=== PATIENT | female | born 1955 | race Caucasian/White ===

== ENCOUNTER 2022-12-06 15:21 | Inpatient (IN) | payer OTHER ==
[~2022-12-06] VITALS: Ht 167.6 cm; Wt 62.2 kg
[2022-12-06 15:49] LABS: Hematocrit 36.4 % (33.0-51.0); Mean Corpuscular HGB 31.5 pg (26.0-34.0); Mean Corpuscular HGB Conc 35.7 g/dL (31.5-36.5); Mean Corpuscular Volume 88 fL (80-100); Mean Platelet Volume 11.5 fL (9.1-12.4); Platelet Count 343 K/mm3 (150-400); RDW Coefficient Variation 14.3 % (11.7-14.2); RDW Standard Deviation 45.9 fL (35.1-46.3); Red Blood Cell Count 4.13 M/mm3 (3.80-5.20); White Blood Cell Count 11.37 K/mm3 (4.00-11.30)
[2022-12-06 15:54] LABS: Source, Urine Foley catheter
[2022-12-06 15:58] LABS: Appearance, Urine Hazy (Clear); Bilirubin, Urine Neg (Neg); Blood, Urine 5+ (Neg); Color, Urine Yellow (P-Yellow); Glucose Qualitative, Urine Neg (Neg); Ketones, Urine 1+ (Neg); Leukocyte Esterase, Urine Neg (Neg); Nitrite, Urine Neg (Neg); Protein, Urine 3+ (Neg); Urobilinogen, Urine 1+ (Normal)
[2022-12-06 16:09] LABS: Base Excess Venous -1.5 mmol/L; Bicarbonate Venous 23.1 mmol/L (24.0-30.0); PCO2 Venous 36.9 mmHg (38-42); PO2 Venous 51.3 mmHg (38-42); pH Blood Venous 7.41 (7.34-7.37)
[2022-12-06 16:13] LABS: Creatine Kinase MB 9.5 ng/mL (0.0-3.6)
[2022-12-06 16:17] LABS: Albumin, Blood 2.4 g/dL (3.4-5.0); Albumin/Globulin Ratio 0.5 (0.8-1.8); Bilirubin, Total 0.6 mg/dL (0.1-1.0); Bun/Creatinine Ratio 33.8 (12.0-20.0); Calcium, Blood 8.6 mg/dL (8.5-10.1); Creatine Kinase MB Index 0.4 (0.0-4.0); Creatinine, Blood 0.71 mg/dL (0.40-1.00); Globulin, Blood 4.9 g/dL (2.2-4.0); Potassium, Blood 2.4 mmol/L (3.5-5.5); Total Protein, Blood 7.3 g/dL (6.4-8.2)
[2022-12-06 16:21] LABS: Mucus Light (0-Heavy); RBC Cast 0-2 /lpf (0)
[2022-12-06 16:22] LABS: Amorphous Light (0-Heavy); Bacteria Many /hpf; Squamous Epithelial Cells Rare /hpf (Few)
[2022-12-06 16:49] LABS: BAND PERCENT MAN 40 % (0-8); BASOPHILS PERCENT MAN 0 % (0-2); EOSINOPHILS PERCENT MAN 0 % (0-6); LYMPHOCYTES ABSOLUTE MAN 1.59 K/mm3 (0.84-5.20); LYMPHOCYTES PERCENT MAN 14 % (21-46); MONOCYTES ABSOLUTE MAN 0.45 K/mm3 (0.16-1.47); MONOCYTES PERCENT MAN 4 % (4-13); NEUTROPHILS ABSOLUTE MAN 9.32 K/mm3 (1.96-9.15); SEG NEUTROPHILS PERCENT MAN 42 % (41-73); TOTAL CELLS COUNTED 100
[2022-12-06 18:04] LABS: International Normalized Ratio 1.19; Prothrombin Time Results 12.4 Sec (9.7-11.5)
[2022-12-06 18:52] VITALS: BP 135/106
--- NOTE | 2022-12-06 18:55 | NUR ---
PTARRIVED WITH STOOL IN ATTENDS NOTED TO HAVE DARK RED RENETTA BLOOD IN STOOL WHICH WAS CONFIRMED TO BE FROM ABDOMEN. CT RESULTS ARE NOTED, ATTEMPTING TO CONTACT HOSPITALIST AT THIS TIME. PT CONFUSED. PT CLEANED ON ARRIVAL. ABD TAUGUHT TO PALPATION, BUT DOES NOT REPORT PAIN TO PALPATOPN, BOWEL TONES DIM TO ABSENT T/O
[2022-12-06 19:59] LABS: U Amphetamine Screen Not Detected; U Barbituate Screen Not Detected; U Benzodiazapine Screen Not Detected; U Buprenorphine Screen Not Detected; U Cannabinoids Screen Not Detected; U Cocaine Screen Not Detected; U Methadone Screen Not Detected; U Methamphetamine Screen Not Detected; U Opiates Screen Not Detected; U Oxycodone Screen Not Detected; U Phencyclidine Screen Not Detected; U Propoxyphene Screen Not Detected
[2022-12-06 20:25] VITALS: BP 147/70
[2022-12-06] MEDS ORDERED: Hair, Skin & N1 EACH PO (22:15)
[2022-12-06] MEDS ORDERED: ASPI325 PO (22:15)
[2022-12-06 22:53] LABS: Bun/Creatinine Ratio 37.7 (12.0-20.0); Calcium, Blood 7.9 mg/dL (8.5-10.1); Creatinine, Blood 0.56 mg/dL (0.40-1.00); Potassium, Blood 2.8 mmol/L (3.5-5.5)
[2022-12-07 00:50] VITALS: BP 128/63
[2022-12-07 04:37] VITALS: BP 147/65
[2022-12-07 05:23] LABS: BASOPHILS ABSOLUTE AUTO 0.04 K/mm3 (0.00-0.23); BASOPHILS PERCENT AUTO 0 % (0-2); Hematocrit 27.9 % (33.0-51.0); LYMPHOCYTES ABSOLUTE AUTO 1.82 K/mm3 (0.84-5.20); LYMPHOCYTES PERCENT AUTO 16 % (21-46); MONOCYTES ABSOLUTE AUTO 0.76 K/mm3 (0.16-1.47); MONOCYTES PERCENT AUTO 7 % (4-13); Mean Corpuscular HGB 31.3 pg (26.0-34.0); Mean Corpuscular HGB Conc 35.8 g/dL (31.5-36.5); Mean Corpuscular Volume 88 fL (80-100); Platelet Count 286 K/mm3 (150-400); RDW Coefficient Variation 14.2 % (11.7-14.2); RDW Standard Deviation 45.3 fL (35.1-46.3); Red Blood Cell Count 3.19 M/mm3 (3.80-5.20); White Blood Cell Count 11.57 K/mm3 (4.00-11.30)
[2022-12-07 05:24] LABS: EOSINOPHILS PERCENT AUTO 0 % (0-6); IMMATURE GRAN ABSOLUTE AUTO 0.06 K/mm3 (0.00-0.10); IMMATURE GRAN PERCENT AUTO 1 % (0-1); NEUTROPHILS ABSOLUTE AUTO 8.89 K/mm3 (1.96-9.15); NEUTROPHILS PERCENT AUTO 77 % (41-73)
[2022-12-07 05:49] LABS: Albumin, Blood 1.8 g/dL (3.4-5.0); Albumin/Globulin Ratio 0.5 (0.8-1.8); Bilirubin, Total 0.7 mg/dL (0.1-1.0); Bun/Creatinine Ratio 31.8 (12.0-20.0); Creatinine, Blood 0.63 mg/dL (0.40-1.00); Globulin, Blood 3.9 g/dL (2.2-4.0); Potassium, Blood 3.4 mmol/L (3.5-5.5); Total Protein, Blood 5.7 g/dL (6.4-8.2)
--- NOTE | 2022-12-07 06:17 | NUR ---
SHIFT SUMMARY: PT'S MENTATION SEEMS TO HAVE IMPROVED SLIGHTOUTLY THROUGHOUT SHIFT. AT BEGINNING OF SHIFT PT WOULD NOT GIVEN ANY VERBAL RESPONCE TO QUESTIONS OR STATEMENTS DIRECTED TOWARDS HER. PT IS NOW ABLE TO ANSWER SIMPLE QUESTIONS, AND MAKE SOME NEEDS KNOW. ABLE TO FOLLOW DIRECTIONS. NOT ABLE TO UNDERSTAND REASONING BEHIND QUESTIONS ASKED OF HER. ORIENTED TO SELF AND LOCATION ONLY. CIWAH SCORES HAVE REMAINED < 8, NOT NEEDING ANY TREATMENT. PT HAS HAD ONE SMALL, SOFT BM THAT HAS BOTH BRIGHT RED AND BLACK APPEARENCE. PALENCIA CATHETER DRAINING BROWN URINE WITHOUT DIFFICULTY. POTASSIUM REPLACEMENT GIVEN TO PT DUE TO POTASSIUM BEING 2.8, A.M. LABS SHOW IMPROVEMENT OF 3.4 WITH POTASSIUM REPLACMENT NOT YET COMPLETE. WILL CONTINUE TO MONITOR. MEDICATED FOR GENERLIZED PAIN WITH PRN PAIN MEDS. DENIES ANY NAUSEA.
[2022-12-07 07:00] VITALS: BP 128/64
--- NOTE | 2022-12-07 08:00 | NUR ---
Received report from Judith KEYES. Patient awake in bed and her alertness has increased from her admission from last night. She is on RA and sats >90%. She is alert to self, and family. Speech is clear. She has 20ga LW, 20ga, RAC, 18gas LAC, all C/D/I and flushed and SL'd. She has 14 Fr Dos Santos draining to gravity brown colored urine in adequate amounts. She continues to have blood in stool and abdome tender to palpation. WU. She is NPO and green swabs for mouth.
--- NOTE | 2022-12-07 08:00 | NUR ---
Received report from Judith KEYES. Patient is awake in bed and has increased her alertness since admission. Significant other called and gave update. She is on RA and sats >90%. She has 14 Fr rios draining to garvity brown colored urine. She has 20ga IV LW, 20ga RAC, 18ga LAC, all have been flushed and SL'd. She has tender to palpation abdomen and awaiting surgical consult. Attends in place. WU. She is NPO and ice chips.
--- NOTE | 2022-12-07 11:36 | NUR ---
Patient has been resting well. Dr Garcia by and will allow Abx to work and re-evaluate. Tolerating am IV meds well. No other significant changes currently. No stools this shift as of yet. She remains on RA and sats >90%.
[2022-12-07 13:46] VITALS: BP 124/59
--- NOTE | 2022-12-07 15:30 | NUR ---
Patient had large maroon stool approx 400 mls. VSS. She is alert and able to assist with care. She remains on RA and sats >90%. She has been tolerating ice chips well. Dos Santos remains patent, now light lilliana/yellow urine.
[2022-12-07 18:04] VITALS: BP 134/62
--- NOTE | 2022-12-07 19:16 | NUR ---
Medicated patient for stomach pain per MAR. She remains on RA and sat s>90%. She wears attends for incontinence of bloody stool. She has 14Fr Dos Santos draining to gravity light lilliana colored urine. Jose will re-evaluate tomorrow, but she might need GI Consult. She is not amblatory at all and states she crawls at home to get around, She has x3 IV's and 20ga LW infusing Abx and other two flushed and SL'd. MAEW but very weak. Stan is more oriented all the time and is able to communicate her needs.
[2022-12-08 00:06] VITALS: BP 139/76
[2022-12-08 04:18] VITALS: BP 146/66
[2022-12-08 04:24] LABS: Albumin, Blood 1.7 g/dL (3.4-5.0); Albumin/Globulin Ratio 0.5 (0.8-1.8); Bilirubin, Total 0.7 mg/dL (0.1-1.0); Bun/Creatinine Ratio 22.3 (12.0-20.0); Calcium, Blood 7.8 mg/dL (8.5-10.1); Creatinine, Blood 0.58 mg/dL (0.40-1.00); Globulin, Blood 3.7 g/dL (2.2-4.0); Potassium, Blood 2.8 mmol/L (3.5-5.5); Total Protein, Blood 5.4 g/dL (6.4-8.2)
--- NOTE | 2022-12-08 06:17 | NUR ---
SHIFT SUMMARY: PT HAS BEEN ALERT, ORIENTED X 2-3. DISORIENTED TO DATE/TIME. INTERMITTENT CRAMPING PAIN IN ABDOMEN. MEDICATED WITH PRN PAIN MEDICATION AND HEATING PAD APPLIED TO ABDOMEN WITH GOOD RESULTS. PT CONTINUES TO HAVE BLOODY/BLACK LIQUID INCONTINENT STOOLS. PALENCIA CATHETER PUTTING OUT TEA COLORED CLEAR URINE WITHOUT DIFFICULTY. PT HAS DENIED ANY NAUSEA DURING THIS SHIFT. IV FLUIDS INFUSING ORDERED. ABDOMENAL SCAN COMPLTED THIS A.M.
[2022-12-08 07:38] VITALS: BP 158/75
[2022-12-08 15:38] LABS: Phosphorus, Blood 2.2 mg/dL (2.5-4.9); Potassium, Blood 3.3 mmol/L (3.5-5.5)
[2022-12-08 15:52] VITALS: BP 124/64
--- NOTE | 2022-12-08 18:34 | NUR ---
SHIFT SUMMARY: PT NAPS OFTEN, ALERT TO STAFF IN ROOM, ORIENTED TO SELF, LOCATION, MINIMAL SITUATION AND CONFUSED RE: DATE/TIME. PT HAS BEEN COOPERATIVE W/CARE BUT HAS BEEN RESISTANT TO ACTIVITY OR WORKING WITH PT/OT. O2 SATS >93% ON RA. VS STABLE. PT NOW SURGICAL STATUS, TELEMETRY HAS BEEN DISCONTINUED. PT INCONTINENT OF LIQUID STOOL, COLOR BECOMING MORE BROWN IN COLOR. PT DIET PROGRESSED TO CLEAR LIQUID, CURRENTLY TOLERATING WELL. INDWELLING PALENCIA DC'd, PUREWICK IN PLACE FOR PART OF THE SHIFT BUT URINE WAS MIXING W/STOOL IN COLLECTION CONTAINER. PT CURRENTLY WEARING ATTENDS, CHECKED OFTEN AND CHANGED NEEDED. AT THIS TIME PT IS RESTING QUIETLY IN BED, WILL CONTINUE TO MONITOR AND TREAT ACCORDINGLY UNTIL CHANGE OF SHIFT.
[2022-12-08 20:58] VITALS: BP 152/77
--- NOTE | 2022-12-08 22:29 | NUR ---
ASSUMPTION OF CARE/ASSESSMENT: ASSUMED CARE OF PT AT 1900; PT IN BED AND A&O X 2. PT IS ABLE TO STATE NAME/ AND THAT SHE IS IN [place] ACCURATELY, BUT CANNOT STATE WHY SHE IS HERE OR THE TIME/DATE ACCURATELY. PT IS FOLLOWING COMMANDS AT THIS TIME. PT CURRENTLY ON RA WITH SPO2 96<. SR ON MONITOR WITH HR 80'S AND SBP 150'S; NO C/O CHEST PAIN OR SOB AT THIS TIME. ABD IS TENDER TO TOUCH AND HYPO ACTIVE BOWEL SOUNDS NOTED. PT WITH DEPENDS IN PLACE FOR ELIMINATION/VOIDING NEEDS. PT REPOSITIONING IN BED INDEPENDENTLY AT THIS TIME. PPP X 4, SKIN WARM AND INTACT. BED LOWERED, CALL LIGHT IN REACH, WILL CONTINUE TO MONITOR.
[2022-12-09 00:19] VITALS: BP 123/49
[2022-12-09 03:54] VITALS: BP 128/64
[2022-12-09 04:06] LABS: BASOPHILS ABSOLUTE AUTO 0.04 K/mm3 (0.00-0.23); BASOPHILS PERCENT AUTO 0 % (0-2); EOSINOPHILS ABSOLUTE AUTO 0.08 K/mm3 (0.00-0.68); EOSINOPHILS PERCENT AUTO 1 % (0-6); Hematocrit 26.2 % (33.0-51.0); Hemoglobin 9.1 g/dL (11.5-16.0); IMMATURE GRAN ABSOLUTE AUTO 0.13 K/mm3 (0.00-0.10); IMMATURE GRAN PERCENT AUTO 1 % (0-1); LYMPHOCYTES ABSOLUTE AUTO 2.17 K/mm3 (0.84-5.20); LYMPHOCYTES PERCENT AUTO 17 % (21-46); MONOCYTES ABSOLUTE AUTO 0.71 K/mm3 (0.16-1.47); MONOCYTES PERCENT AUTO 6 % (4-13); Mean Corpuscular HGB 31.2 pg (26.0-34.0); Mean Corpuscular HGB Conc 34.7 g/dL (31.5-36.5); Mean Corpuscular Volume 90 fL (80-100); NEUTROPHILS ABSOLUTE AUTO 9.58 K/mm3 (1.96-9.15); NEUTROPHILS PERCENT AUTO 75 % (41-73); Platelet Count 335 K/mm3 (150-400); RDW Coefficient Variation 15.7 % (11.7-14.2); RDW Standard Deviation 51.1 fL (35.1-46.3); Red Blood Cell Count 2.92 M/mm3 (3.80-5.20); White Blood Cell Count 12.71 K/mm3 (4.00-11.30)
[2022-12-09 04:21] LABS: Albumin, Blood 1.7 g/dL (3.4-5.0); Anion Gap 4 mmol/L (6-16); Blood Urea Nitrogen 9 mg/dL (8-24); CO2, Blood 23 mmol/L (21-32); Calcium, Blood 8.2 mg/dL (8.5-10.1); Chloride, Blood 116 mmol/L (98-108); Creatinine, Blood 0.56 mg/dL (0.40-1.00); Glomerular Filtration Rate 100 (60-); Glucose, Blood 106 mg/dL (70-99); Magnesium, Blood 1.5 mg/dL (1.6-2.4); Phosphorus, Blood 2.7 mg/dL (2.5-4.9); Potassium, Blood 2.8 mmol/L (3.5-5.5); Sodium, Blood 143 mmol/L (136-145)
--- NOTE | 2022-12-09 06:14 | NUR ---
SHIFT SUMMARY: PT SLEPT FOR THE MAJORITY OF THE NIGHT. PT HAD 9/10 ABD PAIN AND MEDICATED PER EMAR EARLY THIS MORNING. PT CONTINUES TO HAVE LOOSE STOOL. PT POTASSIUM LOW THIS MORNING AND RECIEVING REPLACEMENTS AT THIS TIME. MEPILEX PLACED ON LEFT, INNER KNEE AND LEFT HIP TO PREVENT SKIN BREAKDOWN; PT FAVORS THIS SIDE TO SLEEP ON AND THESE SITES STARTED TO BECOME RED. NS INFUSING AT 75 MLS/HR. BED LOWERED, CALL LIGHT IN REACH, WILL CONTINUE TO MONITOR UNTIL ONCOMING RN ARRIVES.
[2022-12-09 08:04] VITALS: BP 124/74
[2022-12-09 16:24] VITALS: BP 143/63
[2022-12-09 16:42] LABS: Albumin, Blood 1.7 g/dL (3.4-5.0); Anion Gap 5 mmol/L (6-16); Blood Urea Nitrogen 8 mg/dL (8-24); CO2, Blood 21 mmol/L (21-32); Chloride, Blood 119 mmol/L (98-108); Creatinine, Blood 0.54 mg/dL (0.40-1.00); Glomerular Filtration Rate 101 (60-); Glucose, Blood 149 mg/dL (70-99); Phosphorus, Blood 3.2 mg/dL (2.5-4.9); Potassium, Blood 2.9 mmol/L (3.5-5.5); Sodium, Blood 145 mmol/L (136-145)
--- NOTE | 2022-12-09 17:52 | NUR ---
SHIFT SUMMARY/TRANSFER: PT MORE ALERT TODAY, ORIENTED TO SELF, LOCATION, MINIMAL SITUATION. PT CONTINUES COOPERATIVE W/CARE. O2 SATS MAINTAINED >93% ON RA. VS STABLE, PT DENIES SOB OR CP. PT MEDICATED PER EMAR FOR C/O ABDOMINAL CRAMPING. PT CONTINUES INCONTINENT OF BOWEL AND URINE. ATTENDS IN PLACE, CHECKED FREQUENTLY AND CHANGED NEEDED. BOWEL CONTINUES BROWN IN COLOR AND UNFORMED/LIQUID. ELECTROLYTE REPLACMENT CONTINUES PER ORDERS. PT HAS RECEIVED NEW ROOM PLACEMENT IN SURGICAL DEPT. REPORT GIVEN TO WALI PERALES AND PT TRANSFERED W/OUT INCIDENT. PT'S BOYFRIEND (ZAIN) UPDATED ON ROOM CHANGE VIA TELEPHONE.
[2022-12-09 19:45] VITALS: BP 150/63
--- NOTE | 2022-12-09 23:54 | NUR ---
ASSUMED CARE OF PT. PT RESTING IN BED, APPEARS TO BE SLEEPING. RESP E/U, NO DISTRESS NOTED. BED ALARM ON.
[2022-12-10 03:40] VITALS: BP 154/86
[2022-12-10 06:40] LABS: BASOPHILS ABSOLUTE AUTO 0.04 K/mm3 (0.00-0.23); BASOPHILS PERCENT AUTO 0 % (0-2); EOSINOPHILS ABSOLUTE AUTO 0.08 K/mm3 (0.00-0.68); EOSINOPHILS PERCENT AUTO 1 % (0-6); Hematocrit 25.6 % (33.0-51.0); Hemoglobin 8.9 g/dL (11.5-16.0); IMMATURE GRAN ABSOLUTE AUTO 0.08 K/mm3 (0.00-0.10); IMMATURE GRAN PERCENT AUTO 1 % (0-1); LYMPHOCYTES ABSOLUTE AUTO 2.05 K/mm3 (0.84-5.20); LYMPHOCYTES PERCENT AUTO 18 % (21-46); MONOCYTES ABSOLUTE AUTO 0.77 K/mm3 (0.16-1.47); MONOCYTES PERCENT AUTO 7 % (4-13); Mean Corpuscular HGB 31.7 pg (26.0-34.0); Mean Corpuscular HGB Conc 34.8 g/dL (31.5-36.5); Mean Corpuscular Volume 91 fL (80-100); Mean Platelet Volume 11.1 fL (9.1-12.4); NEUTROPHILS ABSOLUTE AUTO 8.22 K/mm3 (1.96-9.15); NEUTROPHILS PERCENT AUTO 73 % (41-73); Platelet Count 328 K/mm3 (150-400); RDW Coefficient Variation 15.8 % (11.7-14.2); RDW Standard Deviation 52.3 fL (35.1-46.3); Red Blood Cell Count 2.81 M/mm3 (3.80-5.20); White Blood Cell Count 11.24 K/mm3 (4.00-11.30)
--- NOTE | 2022-12-10 06:40 | NUR ---
PT VSS T/O NIGHT. PT ANATOLY CL PO, DENIED N/V, IS PASSING FLATUS AND BROWN UNFORMED BM. PT INCONTINENT OF URINE AND STOOL. ABD REMAINS FIRM/DISTENDED, PT REP GENERALIZED ABD PAIN. PAIN MGD W/50 MCG FENTANYL W/REP RELIEF. CIWA STABLE. IVF AND ABX CONT PER ORDERS. BED ALARM ON FOR SAFETY.
[2022-12-10 06:58] LABS: Albumin, Blood 1.6 g/dL (3.4-5.0); Anion Gap 1 mmol/L (6-16); Blood Urea Nitrogen 6 mg/dL (8-24); Bun/Creatinine Ratio 12.1 (12.0-20.0); CO2, Blood 23 mmol/L (21-32); Calcium, Blood 7.9 mg/dL (8.5-10.1); Chloride, Blood 117 mmol/L (98-108); Glomerular Filtration Rate 103 (60-); Glucose, Blood 130 mg/dL (70-99); Magnesium, Blood 1.7 mg/dL (1.6-2.4); Phosphorus, Blood 2.5 mg/dL (2.5-4.9); Potassium, Blood 2.8 mmol/L (3.5-5.5); Sodium, Blood 141 mmol/L (136-145)
[2022-12-10 07:05] VITALS: BP 144/83
[2022-12-10 14:29] VITALS: BP 133/73
--- NOTE | 2022-12-10 17:11 | NUR ---
SUMMARY: PT ADMITTED FOR ACUTE ENCEPHALOPATHY, DIVERTICULITIS WITH MICRO PERF. PT IS A/O, VSS, CIWA 0 THIS SHIFT. PT CONTINUES TO HAVE ABD PAIN, ABD IS MILDLY DISTENDED AND TENDER, PT MEDICATED PER EMAR. PT TOLERATING CLEAR LIQUIDS, NO N/V. PT HAS WEAKNESS, BUT ABLE TO WORK WITH THERAPY TODAY AND SAT IN RECLINER FOR SOME TIME. PT IS HAVING INCONTINENT BROWN, LIQUID BM'S CHANGED FREQUENTLY AND SKIN CARE GIVEN. ANTIBIOTICS AND POTASSIUM INFUSED TODAY. NO ACUTE CONCERNS AT THIS TIME, PT USING CALL LIGHT.
[2022-12-10 19:45] VITALS: BP 174/91
[2022-12-11 00:08] VITALS: BP 159/82
[2022-12-11 04:45] VITALS: BP 154/80
--- NOTE | 2022-12-11 05:10 | NUR ---
SHIFT SUMMARY NO ACUTE CHANGES TO REPORT OVERNIGHT, PT HAS RESTED MOST OF THE. A/O TO HOSPITAL, YEAR AND MONTH. BUT DID NOT REMEMBER THE NAME OF THE HOSPITAL OR THE CURRENT [place] PRESIDENT. PT HAS BEEN ABLE TO ANSWER MY QUESTIONS APPROPRIATELY OTHERWISE AND IS ABLE TO MAKE NEEDS KWOWN. PT COMPLAINS OF INTERMITTENT ABD PAIN, MEDICATED PER EMAR. IVF AND IV ANTIBIOTICS PER ORDERS. CIWA SCORE ZERO. BED IN LOWEST POSITION, CALL LIGHT WITHIN REACH.
[2022-12-11 06:04] LABS: Albumin, Blood 1.7 g/dL (3.4-5.0); Anion Gap 3 mmol/L (6-16); Blood Urea Nitrogen 4 mg/dL (8-24); Bun/Creatinine Ratio 8.5 (12.0-20.0); CO2, Blood 25 mmol/L (21-32); Calcium, Blood 8.1 mg/dL (8.5-10.1); Chloride, Blood 116 mmol/L (98-108); Creatinine, Blood 0.47 mg/dL (0.40-1.00); Glomerular Filtration Rate 104 (60-); Glucose, Blood 88 mg/dL (70-99); Magnesium, Blood 1.6 mg/dL (1.6-2.4); Phosphorus, Blood 2.2 mg/dL (2.5-4.9); Potassium, Blood 2.9 mmol/L (3.5-5.5); Sodium, Blood 144 mmol/L (136-145)
[2022-12-11 06:32] LABS: BASOPHILS ABSOLUTE AUTO 0.06 K/mm3 (0.00-0.23); BASOPHILS PERCENT AUTO 1 % (0-2); EOSINOPHILS ABSOLUTE AUTO 0.13 K/mm3 (0.00-0.68); EOSINOPHILS PERCENT AUTO 1 % (0-6); Hematocrit 27.8 % (33.0-51.0); Hemoglobin 9.3 g/dL (11.5-16.0); IMMATURE GRAN ABSOLUTE AUTO 0.09 K/mm3 (0.00-0.10); IMMATURE GRAN PERCENT AUTO 1 % (0-1); LYMPHOCYTES ABSOLUTE AUTO 2.01 K/mm3 (0.84-5.20); LYMPHOCYTES PERCENT AUTO 16 % (21-46); MONOCYTES PERCENT AUTO 6 % (4-13); Mean Corpuscular HGB 30.9 pg (26.0-34.0); Mean Corpuscular HGB Conc 33.5 g/dL (31.5-36.5); Mean Corpuscular Volume 92 fL (80-100); Mean Platelet Volume 10.9 fL (9.1-12.4); NEUTROPHILS ABSOLUTE AUTO 9.41 K/mm3 (1.96-9.15); NEUTROPHILS PERCENT AUTO 76 % (41-73); Platelet Count 367 K/mm3 (150-400); RDW Standard Deviation 54.4 fL (35.1-46.3); Red Blood Cell Count 3.01 M/mm3 (3.80-5.20)
[2022-12-11 08:15] VITALS: BP 169/72
--- NOTE | 2022-12-11 11:28 | NUR ---
PAIN PT RATING PAIN 8/10, WHICH IS IMPROVED FROM 10/10. OFFERED ICEPACK OR KPAD FOR COMFORT, WHICH PT REFUSED.
--- NOTE | 2022-12-11 11:50 | NUR ---
DR QUEEN IN TO SEE PT.
[2022-12-11 12:04] VITALS: BP 188/78
--- NOTE | 2022-12-11 13:10 | NUR ---
PATIENT LAYING DOWN IN BED ASLEEP. UNLABORED RESPIRATIONS. CALL LIGHT WITHIN REACH.
--- NOTE | 2022-12-11 15:02 | NUR ---
HELPED PT FROM CHAIR BACK TO BED. CURRENTLY RESTING IN BED, CALL LIGHT WITHIN REACH AND BED ALARM ON.
--- NOTE | 2022-12-11 16:41 | NUR ---
pt to CT
[2022-12-11 16:42] VITALS: BP 163/86
--- NOTE | 2022-12-11 17:30 | NUR ---
BACK FROM IMAGING.
--- NOTE | 2022-12-11 19:21 | NUR ---
SHIFT SUMMARY PATIENT WAS HAVING INCREASED ABDOMINAL PAIN THROUHGTOUT THE DAY. SHE WAS MEDICATED PER EMAR AND PATIENT WAS OFFERED A HEATING PACK AND COLD PACK BUT REFUSED BOTH. PATIENT WORKED WITH PT AND SAT UP IN CHAIR FOR [address] A [address] SCAN DONE THIS AFTERNOON. PATIENTS VISISTED AROUND DINNER TIME. PATIENT IS LAYING IN BED, CALL LIGHT WITHIN REACH AND BED ALARM ON FOR SAFETY.
--- NOTE | 2022-12-11 19:29 | NUR ---
REVIEWED SN DOCUMENTATION.
[2022-12-11 19:53] VITALS: BP 148/82
[2022-12-12] VITALS (8 sets, daily range): BP systolic 137–186; BP diastolic 79–99
[2022-12-12 05:31] LABS: BASOPHILS ABSOLUTE AUTO 0.09 K/mm3 (0.00-0.23); BASOPHILS PERCENT AUTO 1 % (0-2); EOSINOPHILS ABSOLUTE AUTO 0.11 K/mm3 (0.00-0.68); EOSINOPHILS PERCENT AUTO 1 % (0-6); Hematocrit 26.4 % (33.0-51.0); Hemoglobin 8.9 g/dL (11.5-16.0); IMMATURE GRAN ABSOLUTE AUTO 0.09 K/mm3 (0.00-0.10); IMMATURE GRAN PERCENT AUTO 1 % (0-1); LYMPHOCYTES ABSOLUTE AUTO 1.16 K/mm3 (0.84-5.20); LYMPHOCYTES PERCENT AUTO 9 % (21-46); MONOCYTES ABSOLUTE AUTO 0.48 K/mm3 (0.16-1.47); MONOCYTES PERCENT AUTO 4 % (4-13); Mean Corpuscular HGB 31.6 pg (26.0-34.0); Mean Corpuscular HGB Conc 33.7 g/dL (31.5-36.5); Mean Corpuscular Volume 94 fL (80-100); Mean Platelet Volume 11.1 fL (9.1-12.4); NEUTROPHILS ABSOLUTE AUTO 10.84 K/mm3 (1.96-9.15); NEUTROPHILS PERCENT AUTO 85 % (41-73); Platelet Count 361 K/mm3 (150-400); RDW Coefficient Variation 15.9 % (11.7-14.2); RDW Standard Deviation 54.2 fL (35.1-46.3); Red Blood Cell Count 2.82 M/mm3 (3.80-5.20); White Blood Cell Count 12.77 K/mm3 (4.00-11.30)
[2022-12-12 05:53] LABS: Calcium, Blood 8.2 mg/dL (8.5-10.1); Creatinine, Blood 0.57 mg/dL (0.40-1.00); Potassium, Blood 3.2 mmol/L (3.5-5.5)
--- NOTE | 2022-12-12 07:41 | NUR ---
SUMMARY REMAINS NPO.REQUIRED FENTANYL IV FOR PAIN TOIGHT.
--- NOTE | 2022-12-12 07:49 | NUR ---
DR HERNANDEZ IN TO SEE PT. PT REPORTED TO DR HERNANDEZ THAT FEELS BETTER. DOES NOT WANT SURGERY.
--- NOTE | 2022-12-12 10:04 | NUR ---
pt to imaging.
--- NOTE | 2022-12-12 11:51 | NUR ---
PT ARRIVED BACK TO ROOM FROM IMAGING. URESIL DRAIN TO L ABD COMPRESSED. HUNTER FLUID NOTED IN TUBING, NONE IN COLLECTION BAG AT THIS TIME.
--- NOTE | 2022-12-12 11:56 | NUR ---
PATIENT BACK FROM CT. A URESIL WAS PLACED BY RADIOLIGIST ON PATIETNS LOWER LEFT ABDOMEN. DRESSING IS CLEAN DRY AND INTACT. NO DRAINAGE WAS NOTED IN COLLECTION BAG AT THIS TIME. PATIENT LAYING IN BED, CALL LIGHT WITHIN REACH AND BED ALARM ON.
--- NOTE | 2022-12-12 13:06 | NUR ---
PATIENT DENIED HEAT PAD AFTER REQUESTING IT FOR PAIN CONTROL. RN IS MEDICATING PATIENT PER EMAR. CALL LIGHT WITHIN REACH AND BED ALARM ON.
--- NOTE | 2022-12-12 16:27 | NUR ---
SHIFT SUMMARY NO ACUTE CHANGES. PATIENT HAD CT GUIDED URICIL DRAIN PUT IN BY RADIOLOGIST. URICIL IS COMPRESSED AND THERE IS A SCANT AMOUNT OF DRAINAGE URICIL IS CDI. PATIENT HAD MODERATE TO HIGH PAIN THROUOUT THE SHIFT AND WAS MEDICATED FOR PAIN BY RN PER EMAR, PATIENT REFUSED ALTERNATIVE PAIN RELIEF MEASURES SUCH K-PAD OR ICE PACK. PATIENT IS INCONTINENT OF URINE AND BOWELS AND HAS BEEN CHANGED AND REPOSITIONED THROUGHOUT THE DAY. PATIENT IS ABLE TO TURN IN BED WITH MINIMAL ASSISTANCE. PATIENT IS LAYING IN BED WATCHING TV, CALL LIGHT WITHIN REACH, BED ALARM ON, AND BED IN LOWEST POSITION.
--- NOTE | 2022-12-12 18:10 | NUR ---
REVIEWED SN DOCUMENTATION.
[2022-12-13] VITALS (7 sets, daily range): BP systolic 139–185; BP diastolic 52–101
[2022-12-13 04:50] LABS: BASOPHILS ABSOLUTE AUTO 0.08 K/mm3 (0.00-0.23); BASOPHILS PERCENT AUTO 1 % (0-2); EOSINOPHILS ABSOLUTE AUTO 0.15 K/mm3 (0.00-0.68); EOSINOPHILS PERCENT AUTO 1 % (0-6); Hematocrit 26.7 % (33.0-51.0); IMMATURE GRAN ABSOLUTE AUTO 0.08 K/mm3 (0.00-0.10); IMMATURE GRAN PERCENT AUTO 1 % (0-1); LYMPHOCYTES ABSOLUTE AUTO 1.48 K/mm3 (0.84-5.20); LYMPHOCYTES PERCENT AUTO 13 % (21-46); MONOCYTES ABSOLUTE AUTO 0.53 K/mm3 (0.16-1.47); MONOCYTES PERCENT AUTO 5 % (4-13); Mean Corpuscular HGB 31.6 pg (26.0-34.0); Mean Corpuscular HGB Conc 33.7 g/dL (31.5-36.5); Mean Corpuscular Volume 94 fL (80-100); Mean Platelet Volume 10.9 fL (9.1-12.4); NEUTROPHILS ABSOLUTE AUTO 9.48 K/mm3 (1.96-9.15); NEUTROPHILS PERCENT AUTO 80 % (41-73); Platelet Count 359 K/mm3 (150-400); RDW Coefficient Variation 15.9 % (11.7-14.2); RDW Standard Deviation 54.6 fL (35.1-46.3); Red Blood Cell Count 2.85 M/mm3 (3.80-5.20)
[2022-12-13 05:22] LABS: Bun/Creatinine Ratio 7.4 (12.0-20.0); Calcium, Blood 7.9 mg/dL (8.5-10.1); Creatinine, Blood 0.54 mg/dL (0.40-1.00); Magnesium, Blood 1.6 mg/dL (1.6-2.4); Phosphorus, Blood 2.8 mg/dL (2.5-4.9)
--- NOTE | 2022-12-13 07:29 | NUR ---
SHIFT SUMMARY AOX4-SELF, PLACE, DATE, SITUATION. MILD FORGETFULNESS. URESIL DRAIN c ONLY SCANT AMOUNT PURULENT DRAINAGE, NOT ENOUGH TO DRAIN. REPORTS CONSTANT 10/10 MID ABD PAIN, MEDICATED 3x c 2 TAB NORCO & PT ABLE TO REST WELL T/O NIGHT. HYPERACTIVE BT. HAD 3 LIQUID/LOOSE INCONT YELLOW BROWN BM THIS SHIFT. DENIES N/V. ANATOLY CLEAR LIQUIDS. REPORTS PASSING FLATUS. BP SLIGHTLY ELEVATED TO 170'S SYS, MEDICATED c PRN HYDRALAZINE & BP TRENDED BACK TO 150'S SYSTOLIC. REST OF VSS. CALL LIGHT IN REACH & BED ALARM IN PLACE FOR SAFETY.
--- NOTE | 2022-12-13 18:47 | NUR ---
SHIFT SUMMARY PT IS ALERT AND ORIENTED X1. SHE IS ORIENTED TO HERSELF, SHE IS SOMETIMES FORGETFUL. HER PAIN IS CONSTANT 10/10 IN HER ABDOMEN DESPITE MEDICATING ACCORDING TO EMAR. SHE HAS URESIL DRAIN IN LLQ ABDOMEN FOR INTRAABDOMINAL ABSCESS, WITH SCANT DRAINAGE. THE DRESSING IS CLEAN DRY AND INTACT. PT IS ON CLEAR LIQUIDS, TOLERATING WELL, DENIES NAUSEA & VOMITTING. REPORTS FLATUS & HAVING LOOSE/SOFT BM.
[2022-12-14 04:36] VITALS: BP 173/65
[2022-12-14 04:45] LABS: BASOPHILS ABSOLUTE AUTO 0.07 K/mm3 (0.00-0.23); BASOPHILS PERCENT AUTO 1 % (0-2); EOSINOPHILS ABSOLUTE AUTO 0.13 K/mm3 (0.00-0.68); EOSINOPHILS PERCENT AUTO 1 % (0-6); Hematocrit 28.7 % (33.0-51.0); Hemoglobin 9.5 g/dL (11.5-16.0); IMMATURE GRAN ABSOLUTE AUTO 0.06 K/mm3 (0.00-0.10); IMMATURE GRAN PERCENT AUTO 1 % (0-1); LYMPHOCYTES ABSOLUTE AUTO 1.48 K/mm3 (0.84-5.20); LYMPHOCYTES PERCENT AUTO 14 % (21-46); MONOCYTES ABSOLUTE AUTO 0.53 K/mm3 (0.16-1.47); MONOCYTES PERCENT AUTO 5 % (4-13); Mean Corpuscular HGB 30.9 pg (26.0-34.0); Mean Corpuscular HGB Conc 33.1 g/dL (31.5-36.5); Mean Corpuscular Volume 94 fL (80-100); Mean Platelet Volume 10.8 fL (9.1-12.4); NEUTROPHILS PERCENT AUTO 78 % (41-73); Platelet Count 428 K/mm3 (150-400); RDW Coefficient Variation 15.9 % (11.7-14.2); RDW Standard Deviation 54.4 fL (35.1-46.3); Red Blood Cell Count 3.07 M/mm3 (3.80-5.20); White Blood Cell Count 10.27 K/mm3 (4.00-11.30)
[2022-12-14 04:57] LABS: Calcium, Blood 7.9 mg/dL (8.5-10.1); Creatinine, Blood 0.5 mg/dL (0.40-1.00); Potassium, Blood 2.7 mmol/L (3.5-5.5)
[2022-12-14 06:36] VITALS: BP 159/77
--- NOTE | 2022-12-14 06:39 | NUR ---
SHIFT SUMMARY AOX3, NAME, , HOSPITAL. SLOW & VAGUE TO RESPOND TO QUESTIONS. READS WHITEBOARD FOR DATE. VSS. BP ELEVATED @TIMES, WHEN RECHECKED UNDER PARAMETERS FOR HYDRALAZINE. REPORTS 8-06/02 ALLOVER ABD PAIN, MEDICATED c 2TAB NORCO & 50MCG FANTANYL FOR PAIN, ABLE TO REST WELL T/O NIGHT. DENIES N/V. ANATOLY CLEAR LIQUIDS. REPORTS PASSING GAS. LLQ URESIL DRAIN c SCANT AMOUNT PINK PURULENT DRAINAGE. CALL LIGHT IN REACH.
[2022-12-14 07:24] VITALS: BP 156/77
--- NOTE | 2022-12-14 14:24 | NUR ---
PATIENT GOT UP ON OWN WITHOUT STAFF, URESIL DRAIN GOT PULLED OUT IN THE PROCESS. THIS RN PLACED GAUZE & TEGADERM DRESSING OVER SITE. DR QUEEN NOTIFIED AND MADE AWARE. NO NEW ORDERS, IS PLANNING TO DO REPEAT CT OF ABDOMEN TOMORROW.
[2022-12-14 14:57] VITALS: BP 159/67
--- NOTE | 2022-12-14 16:30 | NUR ---
SHIFT SUMMARY PT IS AXO X4. SHE HAS BEEN AWAKE AND UP IN THE CHAIR ALL DAY. SHE IS ABLE TO TRANSFER TO BEDSIDE COMMODE WITH ONE PERSON ASSIST AND UTILIZES HER CALL LIGHT APPROPRIATELY. HER PAIN HAS BEEN MANAGED BETWEEN -06/02 AND MEDICATED ACCORDING TO EMAR. URESIL DRAIN WAS PULLED OUT ACCIDENTALLY BY PT DURING SHIFT GAUZE AND TEGADERM ARE IN PLACE, DRESSING IS C/D/I. DR. QUEEN IS AWARE. PATIENT IS PASSING GAS, VOIDING AND DEFACATING APPROPRIATELY.
[2022-12-14 19:50] VITALS: BP 183/80
--- NOTE | 2022-12-14 21:25 | NUR ---
EKG DONE PER MD ORDER DUE TO TACHYCARDIA. PT BP TRENDING DOWN HR TRENDING UP T/O DAY SHIFT. [facility] NOTIFIED OF CHANGE IN PT CONDITION. THEY RECOMENDED THAT MD CALL [facility] IF THEY FEEL SHE NEEDS TO BE MOVED UP THE LIST. NOTIFIED AT 908. ORDERS RECIEVED FOR STAT CBC, BMP, AND LACTIC. REQUEST FOR TELE DENIED AT THIS TIME EKG SHOWED SINUS RHYTHYM/SINUS TACH . PT DID RECIEVE 500 BOLUS PER MD ORDER FOR EARLIER PHONE CALL BY PRIMARY RN DUE TO HYPOTENSION.
[2022-12-15 02:53] VITALS: BP 153/70
--- NOTE | 2022-12-15 04:28 | NUR ---
SHIFT SUMMARY NO ACUTE CHANGES THIS SHIFT. AOX3-FORGETFUL DATE @BEGINNING OF SHIFT. ROUGHLY AROUND 0030 PT WAS MORE CONFUSED & COULDNT STATE HER OWN BIRTHDATE. VSS. DENIES N/V. REPORTS 8-06/02 PAIN ALLOVER ABD. HYPERACTIVE BT. ANATOLY CLEAR LIQUIDS. HAD 2 INCONT BROWN/ORANGE BM'S. PLAN FOR REPEAT CT TODAY. CALL LIGHT & BED ALARM IN PLACE.
[2022-12-15 06:35] LABS: BASOPHILS ABSOLUTE AUTO 0.05 K/mm3 (0.00-0.23); BASOPHILS PERCENT AUTO 1 % (0-2); EOSINOPHILS ABSOLUTE AUTO 0.14 K/mm3 (0.00-0.68); EOSINOPHILS PERCENT AUTO 2 % (0-6); Hematocrit 28.1 % (33.0-51.0); Hemoglobin 9.2 g/dL (11.5-16.0); IMMATURE GRAN ABSOLUTE AUTO 0.05 K/mm3 (0.00-0.10); IMMATURE GRAN PERCENT AUTO 1 % (0-1); LYMPHOCYTES ABSOLUTE AUTO 2.15 K/mm3 (0.84-5.20); LYMPHOCYTES PERCENT AUTO 24 % (21-46); MONOCYTES PERCENT AUTO 7 % (4-13); Mean Corpuscular HGB 30.5 pg (26.0-34.0); Mean Corpuscular HGB Conc 32.7 g/dL (31.5-36.5); Mean Corpuscular Volume 93 fL (80-100); Mean Platelet Volume 10.5 fL (9.1-12.4); NEUTROPHILS ABSOLUTE AUTO 5.97 K/mm3 (1.96-9.15); NEUTROPHILS PERCENT AUTO 67 % (41-73); Platelet Count 436 K/mm3 (150-400); RDW Coefficient Variation 15.9 % (11.7-14.2); RDW Standard Deviation 54.4 fL (35.1-46.3); Red Blood Cell Count 3.02 M/mm3 (3.80-5.20); White Blood Cell Count 8.96 K/mm3 (4.00-11.30)
[2022-12-15 07:01] LABS: Bun/Creatinine Ratio 2.2 (12.0-20.0); Creatinine, Blood 0.45 mg/dL (0.40-1.00); Potassium, Blood 2.8 mmol/L (3.5-5.5)
[2022-12-15 07:34] VITALS: BP 153/66
[2022-12-15 14:16] LABS: Albumin, Blood 1.8 g/dL (3.4-5.0); Albumin/Globulin Ratio 0.5 (0.8-1.8); Bilirubin, Total 0.3 mg/dL (0.1-1.0); Bun/Creatinine Ratio 4.5 (12.0-20.0); Creatinine, Blood 0.44 mg/dL (0.40-1.00); Globulin, Blood 3.8 g/dL (2.2-4.0); Potassium, Blood 2.6 mmol/L (3.5-5.5); Total Protein, Blood 5.6 g/dL (6.4-8.2)
[2022-12-15 15:04] VITALS: BP 130/66
--- NOTE | 2022-12-15 19:23 | NUR ---
SHIFT SUMMARY PT A&OX4, VSS/RA, PAIN MANAGED WITH OXY 5 MG Q4H, ANATOLY CLD, VOIDING WELL/CONTINENT AND INCONTINENT-ATTENDS ON, MULTIPLE BMs TODAY-BROWN/FORMED, PASSING LARGE AMOUNT OF FLATUS, AMB SBA W/FWW & GB TO BRP, UP TO CHAIR T/O SHIFT. REPORT PROVIDED TO XAVIER KEYES.
[2022-12-15 19:26] VITALS: BP 152/74
[2022-12-15 21:47] LABS: Magnesium, Blood 1.4 mg/dL (1.6-2.4)
--- NOTE | 2022-12-16 01:05 | NUR ---
PHYSICIAN COMMUNICATION INFORMED DR CLEANING OF K @3.0 FROM 2.6, HE STATED WILL ORDER K. WILL GIVE MED & MONITOR LABS.
[2022-12-16 02:13] VITALS: BP 155/63
[2022-12-16 05:15] LABS: BASOPHILS ABSOLUTE AUTO 0.06 K/mm3 (0.00-0.23); BASOPHILS PERCENT AUTO 1 % (0-2); EOSINOPHILS ABSOLUTE AUTO 0.14 K/mm3 (0.00-0.68); EOSINOPHILS PERCENT AUTO 2 % (0-6); Hematocrit 27.4 % (33.0-51.0); IMMATURE GRAN ABSOLUTE AUTO 0.04 K/mm3 (0.00-0.10); IMMATURE GRAN PERCENT AUTO 1 % (0-1); LYMPHOCYTES ABSOLUTE AUTO 2.36 K/mm3 (0.84-5.20); LYMPHOCYTES PERCENT AUTO 28 % (21-46); MONOCYTES ABSOLUTE AUTO 0.71 K/mm3 (0.16-1.47); MONOCYTES PERCENT AUTO 9 % (4-13); Mean Corpuscular HGB 30.8 pg (26.0-34.0); Mean Corpuscular HGB Conc 32.8 g/dL (31.5-36.5); Mean Corpuscular Volume 94 fL (80-100); Mean Platelet Volume 10.3 fL (9.1-12.4); NEUTROPHILS ABSOLUTE AUTO 5.08 K/mm3 (1.96-9.15); NEUTROPHILS PERCENT AUTO 61 % (41-73); Platelet Count 459 K/mm3 (150-400); RDW Coefficient Variation 15.9 % (11.7-14.2); RDW Standard Deviation 54.4 fL (35.1-46.3); Red Blood Cell Count 2.92 M/mm3 (3.80-5.20); White Blood Cell Count 8.39 K/mm3 (4.00-11.30)
--- NOTE | 2022-12-16 05:19 | NUR ---
SUMMARY: PATIENT TRANSFERED FROM SURGICAL UNIT. AOX4 UPON ARRIVAL. FORGETFUL OF INSTRUCTIONS GIVEN BY STAFF TO CALL FOR ASSISTANCE BEFORE GETTING UP. ELECTROLYTES REPLACED OVERNIGHT. VSS. PAIN MANAGED WITH ORAL MEDS. SOFT BOWEL MOVEMENT OVERNIGHT. PATIENT AMBULATED WITH 1X ASSIST AND WALKER. CALL LIGHT IN REACH, BED ALARM ON.
[2022-12-16 05:43] LABS: Albumin, Blood 1.8 g/dL (3.4-5.0); Albumin/Globulin Ratio 0.5 (0.8-1.8); Bilirubin, Total 0.3 mg/dL (0.1-1.0); Bun/Creatinine Ratio 4.2 (12.0-20.0); Calcium, Blood 8.3 mg/dL (8.5-10.1); Creatinine, Blood 0.47 mg/dL (0.40-1.00); Globulin, Blood 3.7 g/dL (2.2-4.0); Potassium, Blood 2.9 mmol/L (3.5-5.5); Total Protein, Blood 5.5 g/dL (6.4-8.2)
[2022-12-16 07:19] VITALS: BP 150/77
--- NOTE | 2022-12-16 12:06 | NUR ---
NOTE PT AWAKE AND ALERT. PT HAS GOTTEN UP WITHOUT HELP MULTIPLE TIMES. BED ALARM ON. WHEN SHE HEARS THE ALARM SHE WILL WAIT. IV MEDICATIONS INFUSING. CIPRO WILL BE LATE D/T POTASSIUM RIDER #3 COMPLETING. POWER GLIDE PATENT AND INFUSING. CONTINUE POC.
[2022-12-16 15:04] VITALS: BP 154/64
[2022-12-16 15:12] LABS: Magnesium, Blood 1.9 mg/dL (1.6-2.4); Potassium, Blood 4.2 mmol/L (3.5-5.5)
--- NOTE | 2022-12-16 16:38 | NUR ---
NOTE PT ALERT, COOPERATIVE WITH CARE. THIS MORNING SHE WAS SETTING THE BED ALARM OFF TRYING TO GET TO THE BATHROOM. UNFORTUNATELY SHE HAD MULTIPLE IV PIGGY BACKS TO ADMINISTER. THIS AFTERNOON SHE HAS BEEN USING HER CALL LIGHT TO REQUEST BATHROOM ASSIST. SHE HAS REQUEST NORCO EVERY 4 HOURS FOR ABD PAIN. POOR APPETITE. ENCOURAGED TO GET UP IN CHAIR AT BEDSIDE. SHE HAS REFUSED. CONTINUE POC.
[2022-12-16 19:20] VITALS: BP 150/71
[2022-12-17 02:05] VITALS: BP 157/64
--- NOTE | 2022-12-17 05:05 | NUR ---
SHIFT SUMMARY NOC PT A/O X 3. FORGETFUL AND IMPULSIVE AT TIMES. DOES NOT USE CALL LIGHT OFTEN BEFORE GETTING OOB TO USE BATHROOM. BED ALARM ON. PT HAS PG IN [place] THAT DOES NOT DRAW. PT HAS CONSTANT PN IN LLQ FROM PERFORATED DIVERTICULITIS ABCESS AND MEDICATED PER EMAR. PT PENDING DISCHARGE ON POTASSIUM/MAGNESIUM AM LAB IMPROVEMENT. PT IS CURRENTLY RESTING WITH BED ALARM ON, BED IN LOWEST POSITION, AND CALL LIGHT WITHIN REACH.
[2022-12-17 05:13] LABS: Bun/Creatinine Ratio 4.5 (12.0-20.0); Calcium, Blood 8.4 mg/dL (8.5-10.1); Creatinine, Blood 0.44 mg/dL (0.40-1.00); Magnesium, Blood 1.9 mg/dL (1.6-2.4); Potassium, Blood 3.4 mmol/L (3.5-5.5)
[2022-12-17 07:49] VITALS: BP 170/72
[2022-12-17] MEDS ORDERED: FOLI1 PO (13:03)
[2022-12-17] MEDS ORDERED: VISBIOME 112.51 EACH PO (13:04)
[2022-12-17] MEDS ORDERED: LOSARTAN POTASS50 M1 PO (13:04)
[2022-12-17] MEDS ORDERED: Norco 5-325 Ta1 EACH PO (13:04)
[2022-12-17] MEDS ORDERED: CIPR500 PO (13:05)
[2022-12-17] MEDS ORDERED: POTCHL20ER PO (13:06)
--- NOTE | 2022-12-17 17:28 | NUR ---
DISCHARGE- PT GIVEN ALL DC INSTRUCTIONS AND PAPERWORK. RN DISCUSSED ALL MEDICATIONS SENT TO PHARMACY AT [facility] IN DETAIL. PT AND SIGNIFICANT OTHER VERBALIZED UNDERSTANDING. RN GAVE PT HER ID NUMBER FOR PHARMACY. RN CALLED [facility] TO VERIFY MEDS HAD BEEN SENT OVER. PT BROUGHT DOWN FOR DC IN TO GET A TAXI RIDE WITH HER PARTNER.
== END 2022-12-17 16:00 | disposition home or self-care (01) | DRG 391 ==
LOC: ER 15:21 → PCU 17:52 → SURS 17:52 → MEDS 17:52 → PCU 18:42 → SURS 12-09 17:34 → MEDS 12-16 02:02
PROVIDERS: Emergency Medicine; Internal Medicine; ADMIT Internal Medicine
PROC: 0T9B70Z Drainage of Bladder with Drainage Device, Via Natural or Artificial Opening (ICD-10-PCS; 2022-12-08)
PROC: 0D9W30Z Drainage of Peritoneum with Drainage Device, Percutaneous Approach (ICD-10-PCS; principal; 2022-12-12)
PROC: 0W9J3ZZ Drainage of Pelvic Cavity, Percutaneous Approach (ICD-10-PCS; principal; 2022-12-12)
DX: K57.20 Diverticulitis of large intestine with perforation and abscess without bleeding (principal); G92.8 Other toxic encephalopathy; K65.1 Peritoneal abscess; E51.2 Wernicke's encephalopathy; M62.82 Rhabdomyolysis; F10.239 Alcohol dependence with withdrawal, unspecified; B96.20 Unspecified Escherichia coli [E. coli] as the cause of diseases classified elsewhere; E87.6 Hypokalemia; E83.42 Hypomagnesemia; E86.0 Dehydration; K52.89 Other specified noninfective gastroenteritis and colitis; R73.9 Hyperglycemia, unspecified; K66.8 Other specified disorders of peritoneum; E83.39 Other disorders of phosphorus metabolism; Z87.891 Personal history of nicotine dependence; Z74.01 Bed confinement status
CPT/HCPCS: 36415; 49405; 70450; 70490; 71045; 74176; 74177; 80048; 80053; 80069; 81001; 82140; 82550; 82553; 82803; 82947; 83605; 83735; 83880; 84100; 84132; 85025; 85610; 87040; 87070; 87075; 87077; 87086; 87186; 87205; 93005; 93010; 94760; 96361; 96365; 96366; 96368; 97110; 97116; 97162; 97166; 97530; 97535; 99285-25; A9270; C1751; J0696; J0744; J1940; J2543; J3010; J3411; J3475; J3480; J7030; J7040; J7050; J7060; Q9967

== ENCOUNTER 2024-02-09 17:51 | Inpatient (IN) | payer OTHER ==
[~2024-02-09] VITALS: Ht 162.6 cm; Wt 52.8 kg
[~2024-02-09 17:51] MED LIST: ASPI325 PO; CIPR500 PO; FOLI1 PO; Hair, Skin & N1 EACH PO; LOSARTAN POTASS50 M1 PO; Norco 5-325 Ta1 EACH PO; POTCHL20ER PO; VISBIOME 112.51 EACH PO
[2024-02-09] MEDS ORDERED: HYDROmorphone HCl/Pf 1MG SYR IV ONE (20:55)
[2024-02-09 21:01] LABS: BASOPHILS ABSOLUTE AUTO 0.08 K/mm3 (0.00-0.23); BASOPHILS PERCENT AUTO 1 % (0-2); EOSINOPHILS ABSOLUTE AUTO 0.19 K/mm3 (0.00-0.68); EOSINOPHILS PERCENT AUTO 1 % (0-6); Hematocrit 37.7 % (33.0-51.0); Hemoglobin 12.5 g/dL (11.5-16.0); IMMATURE GRAN ABSOLUTE AUTO 0.05 K/mm3 (0.00-0.10); IMMATURE GRAN PERCENT AUTO 0 % (0-1); LYMPHOCYTES ABSOLUTE AUTO 1.91 K/mm3 (0.84-5.20); LYMPHOCYTES PERCENT AUTO 14 % (21-46); MONOCYTES ABSOLUTE AUTO 0.92 K/mm3 (0.16-1.47); MONOCYTES PERCENT AUTO 7 % (4-13); Mean Corpuscular HGB 27.8 pg (26.0-34.0); Mean Corpuscular HGB Conc 33.2 g/dL (31.5-36.5); Mean Corpuscular Volume 84 fL (80-100); Mean Platelet Volume 9.1 fL (9.1-12.4); NEUTROPHILS ABSOLUTE AUTO 10.35 K/mm3 (1.96-9.15); NEUTROPHILS PERCENT AUTO 77 % (41-73); Platelet Count 587 K/mm3 (150-400); RDW Coefficient Variation 17.3 % (11.7-14.2); RDW Standard Deviation 53.8 fL (35.1-46.3)
[2024-02-09 21:19] LABS: Albumin, Blood 3.2 g/dL (3.4-5.0); Albumin/Globulin Ratio 0.7 (0.8-1.8); Bilirubin, Total 0.3 mg/dL (0.1-1.0); Bun/Creatinine Ratio 13.2 (12.0-20.0); Calcium, Blood 10.2 mg/dL (8.5-10.1); Creatinine, Blood 0.76 mg/dL (0.40-1.00); Globulin, Blood 4.9 g/dL (2.2-4.0); Potassium, Blood 2.2 mmol/L (3.5-5.5); Total Protein, Blood 8.1 g/dL (6.4-8.2)
[2024-02-09] MEDS ORDERED: Acetaminophen 325 MG TABLET PO PRN (21:35)
[2024-02-09] MEDS ORDERED: OxyCODONE HCL 5 MG TAB PO PRN (21:40)
[2024-02-09] MEDS ORDERED: Ondansetron HCl 2 MG / ML 2ML Vial IV PRN (21:40)
[2024-02-09] MEDS ORDERED: FentaNYL Citrate 50 MCG/ML 2 ML Injection IV PRN (21:40)
[2024-02-09] MEDS ORDERED: NS 1,000 ML IV SCH (21:40)
[2024-02-09] MEDS ORDERED: ChlordiazePOXIDE 25 MG Cap PO PRN ×2 (21:45→21:50)
[2024-02-09] MEDS ORDERED: HydrALAZINE HCl 20 MG / ML 1ML Vial IV PRN (21:45)
[2024-02-09] MEDS ORDERED: Potassium Chl 20MEQ/Water100ML 100 ML IV SCH (21:55)
[2024-02-09] MEDS ORDERED: Potassium Chloride 20 MEQ TabCR PO ONE (22:00)
[2024-02-09] MEDS ORDERED: Ketorolac Tromethamine 15mg Vial IV PRN (22:00)
[2024-02-09 22:01] LABS: Magnesium, Blood 1.8 mg/dL (1.6-2.4)
[2024-02-09 22:12] LABS: International Normalized Ratio 1.02; Prothrombin Time Results 10.9 Sec (9.7-11.5)
[2024-02-09 22:37] VITALS: BP 165/98
--- NOTE | 2024-02-09 23:13 | NUR ---
ARRIVAL PT NEW ADMIT FROM ER W/ L HIP FX. LLE APPEARS TO BE MILDLY SHORTENED AND EXTERNALLY ROTATED. SENSATION AND CIRCULATION REMAIN INTACT. PT ABLE TO MOVE LLE ON COMMAND. MILD REDDNESS OUTLINED. VSS, MILD HTN NOTED. PT REPORTS HIGH PAIN LEVELS AT THIS TIME 910, MEDICATED PER EMAR. PLAN TO RECHECK BP IN AM. TELE READS SR @ 78 W/ FREQUENT PVC'S. PT A/O X 2-3, AGITATED AND ANSWERS "NO" TO ALMOST EVERY QUESTION ASKED. CIWA SCORE OF 9. PT REPORTS SHE DOES NOT DRINK OR SMOKE. EDUCATED ABOUT NPO STATUS AT 0000. PT REPORTS SHE HAS NO FURTHER QUESTIONS OR CONCERNS AT THIS TIME. BED IN LOW, BED ALARM ON FOR SAFETY
[2024-02-10] VITALS (7 sets, daily range): BP systolic 135–183; BP diastolic 61–95
--- NOTE | 2024-02-10 04:26 | NUR ---
SHIFT SUMMARY S/P L FEM FX. LLE REMAINS EXTERNALLY ROTATED AND SHORTENED, SENSATION AND CIRCULATION REMAINS INTACT. REDDNESS HAS BEEN OUTLINED ON LLE, IT HAS NOT GROWN IN SIZE. VSS, TELE READS SR @71 W/LESS OFTEN PVC'S NOTED ON TELE PER RISK CONTROL CONSULTANT. MEDICATED FOR HTN PER EMAR W/GOOD RESULTS. NO VOID SINCE ARRIVAL TO THE FLOOR, BLADDER SCAN @0420 SHOWS [address]ICK IN PL[address]. PT MEDICATED FOR PAIN PER EMAR W/SOME RELIEF, BUT STILL REPORTS HIGH LEVELS OF PAIN. PT NOTED TO BE PICKING UP HIPS AND SHIFTING HERSELF IN BED FOR COMFORT. CIWA SCORES OF 8 AND 9, MEDICATED PER EMAR. PT APPEARS TO BE MORE COMFORTABLE AFTER TAKING LIBRIUM. HAS BEEN NPO SINCE 000 IN ANTICIPATION FOR SURGERY, IVF INFUSING W/ POTASSIUM. SURGICAL [place]IP[place]OWN COMPLETE. OVERALL, NO ACUTE EVENTS NOTED. THE PATIENT IS CURRENTLY RESTING, IN NO DISTRESS, CALL LIGHT IN REACH
[2024-02-10] MEDS ORDERED: Tranexamic Acid 100 ML IV SCH ×2 (07:45)
[2024-02-10] MEDS ORDERED: CeFAZolin Sodium 2,000 MG in NS 100 ML IV SCH ×2 (07:45)
[2024-02-10] MEDS ORDERED: Ropivacaine 0.5% HCl/Pf 123.125 MG,EPINEPHrine HCL 0.25 MG,Ketorolac Tromethamine 15 MG... INFIL SCH (07:45)
[2024-02-10 08:18] LABS: Albumin, Blood 2.9 g/dL (3.4-5.0); Albumin/Globulin Ratio 0.7 (0.8-1.8); Bilirubin, Total 0.3 mg/dL (0.1-1.0); Bun/Creatinine Ratio 15.7 (12.0-20.0); Calcium, Blood 9.1 mg/dL (8.5-10.1); Creatinine, Blood 0.7 mg/dL (0.40-1.00); Globulin, Blood 4.2 g/dL (2.2-4.0); Potassium, Blood 2.6 mmol/L (3.5-5.5); Total Protein, Blood 7.1 g/dL (6.4-8.2)
[2024-02-10] MEDS ORDERED: LORazepam 2 MG/ML 1ML Injection IV PRN (08:40)
[2024-02-10] MEDS ORDERED: Potassium Chloride 40 MEQ in NS 250 ML IV ONE (08:45)
[2024-02-10] MEDS ORDERED: Lactobacil 2-S.Thermo-Bifido 1 1 Cap PO SCH (09:00)
[2024-02-10] MEDS ORDERED: Multivitamins 1 Tab PO SCH (09:00)
[2024-02-10] MEDS ORDERED: Docusate Sodium 100 MG Cap PO SCH (09:00)
[2024-02-10] MEDS ORDERED: Losartan Potassium 50 MG Tab PO SCH (09:00)
[2024-02-10] MEDS ORDERED: Thiamine HCl 100 MG Tab PO SCH (09:00)
[2024-02-10] MEDS ORDERED: Folic Acid 1 MG TAB PO SCH (09:00)
[2024-02-10 09:37] LABS: Magnesium, Blood 1.8 mg/dL (1.6-2.4); Phosphorus, Blood 2.8 mg/dL (2.5-4.9)
[2024-02-10] MEDS ORDERED: Lactated Ringer's 1,000 ML IV SCH (13:15)
--- NOTE | 2024-02-10 13:47 | NUR ---
PT HERE FROM SURGICAL FLOOR ON BED. Pre-Op teaching done. Pt verbalizes understanding. History, Chart, Medications and Allergies reviewed before start of procedure.
--- NOTE | 2024-02-10 14:28 | NUR ---
1114 DR. CASIANO CALLED, PT NOW SCHEDULED A LEFT DANNY HIP INSTEAD OF A PERC PIN PER DR. ULLOA. DR CASIANO WANTS PT TO HAVE AN ADDITIONAL DAY FOR K+ LEVELS TO NORMALIZE/BE OPTIMIZED. PT IRRITATED STATES SHE IS HUNGRY AND PAINFUL. PT EDUCATED THAT SHE CAN EAT AND HAVE MORE PAIN MEDS AFTER BEING TRANSFERRED BACK TO ROOM
--- NOTE | 2024-02-10 14:46 | NUR ---
RETURN TO 215 FROM DAY SURGERY PT BROUGHT BACK TO HER ROOM BY DAY SURGERY RN'S, PLAN TO GIVE MORE TIME FOR K+ TO STABILIZER PER DAY SURGERY RN, STAT DRAW PERFORMED WHILE IN DAY SURGERY WITH RESULSTS NOTED IN CHART, WILL CONTACT ATTENDING TO DISCUSS NEXT STEPS.
--- NOTE | 2024-02-10 19:00 | NUR ---
SHIFT SUMMARY S/P L HIP FX, A/X3 WITH INTERMITTENT FORGETFULLNESS, BEDREST UNTIL OR WHICH WAS PUSHED TO TOMORROW PENDING POTASSIUM RECHECK. PAIN MANAGED PER EMAR. NO ACUTE EVENTS THIS SHIFT, CALL LIGHT IN REACH.
[2024-02-10] MEDS ORDERED: Potassium Chloride 20 MEQ TabCR PO ONE ×3 (20:00→22:40)
[2024-02-10] MEDS ORDERED: Potassium Chl 20MEQ/Water100ML 100 ML IV ONE (20:05)
[2024-02-11] VITALS (9 sets, daily range): BP systolic 154–190; BP diastolic 72–97
--- NOTE | 2024-02-11 04:24 | NUR ---
SHIFT SUMMARY ALBERTO WAS ALERT AND ORIENTED X2-3 ON ASSESSMENT, PT IS FORGETFUL. INCONTINENCE NOTED. PT REQUESTS PAIN MEDICATION AT EVERY INTERACTION. MEDICATED APPROPRIATELY. PT KEPT NPO FROM MIDNIGHT IN PREPARATION FOR POSSIBLE SURGER ON DAY SHIFT. NO NOTED CHANGES TO CONDITION, NO ACUTE EVENTS. PT RESTING IN BED APPEARING COMFORTABLE, USES CALL LIGHT APPROPRIATELY.
[2024-02-11] MEDS ORDERED: Tranexamic Acid 100 ML IV SCH (10:00)
[2024-02-11] MEDS ORDERED: CeFAZolin Sodium 2,000 MG in NS 100 ML IV SCH (10:00)
[2024-02-11] MEDS ORDERED: Ropivacaine 0.5% HCl/Pf 123.125 MG,EPINEPHrine HCL 0.25 MG,Ketorolac Tromethamine 15 MG... INFIL SCH (10:00)
[2024-02-11] MEDS ORDERED: Vancomycin HCL 1,000 MG in NS 100 ML IV SCH (10:00)
--- NOTE | 2024-02-11 19:41 | NUR ---
SHIFT SUMMARY S/P L HIP FX, A/OX3-4 WITH INTERMITTENT FORGETFULNESS, VOIDS INCONTINENTLY, CALLS FREQUENTLY FOR PAIN BUT APPEARS TO BE COMFORTABLE IN HER BED EACH TIME. PLAN FOR OR TOMORROW MORNING AT 0730 PER DAY SURGERY. NO ACUTE NEEDS THIS SHIFT, CALL [facility].
[2024-02-12] VITALS (18 sets, daily range): BP systolic 115–177; BP diastolic 57–96
--- NOTE | 2024-02-12 05:02 | NUR ---
SHIFT SUMMARY S/P L HIP Fx R/T GLF. NO ACUTE CHANGES OVERNIGHT. VSS, TELE @ SINUS RHYTHM;83. NPO SINCE MIDNIGHT IN ANTICIPATION OF SURGERY AT APPROX 0730 TODAY. A&0 x3, FORGETFUL BUT EASILY REORIENTED. PT INCONTINENT, SOAKED ATTENDS T/O NIGHT, DOES NOT CALL WHEN NEEDING TO VOID. ON BEDREST AT THIS TIME, PT PARTICIPATES IN ROLLING IN BED. IV FLUIDS/ABX INFUSING PER EMAR. PT REPORTS PAIN 10/10 WITH ALL PAIN CHECKS, VISUALLY PRESENTS 3-4 ON FACE SCALE AFTER ADMINISTRATION OF PAIN MEDICATIONS PER EMAR. CALL LIGHT IN REACH, BED IN LOWEST POSITION, WILL REPORT TO DAY RN.
--- NOTE | 2024-02-12 06:15 | NUR ---
PT OUT OF ROOM TO SURGERY
[2024-02-12] MEDS ORDERED: Tranexamic Acid 100 ML IV SCH (06:30)
[2024-02-12] MEDS ORDERED: Lactated Ringer's 1,000 ML IV SCH ×2 (06:30→07:35)
[2024-02-12] MEDS ORDERED: Ropivacaine 0.5% HCl/Pf 123.125 MG,EPINEPHrine HCL 0.25 MG,Ketorolac Tromethamine 15 MG... INFIL SCH (06:30)
--- NOTE | 2024-02-12 06:46 | NUR ---
CHANGED R AC IV DRESSING AND FLUSHED WITH 10NS/PATENT.
[2024-02-12] MEDS ORDERED: FentaNYL Citrate 50 MCG/ML 2 ML Injection IV SCH (07:20)
[2024-02-12] MEDS ORDERED: FentaNYL Citrate 50 MCG/ML 2 ML Injection ONE ×3 (07:22→08:36)
[2024-02-12] MEDS ORDERED: Vancomycin HCl 1000 MG ADDvantage ONE (07:29)
[2024-02-12] MEDS ORDERED: DiphenhydrAMINE HCL 25 MG Cap PO PRN (07:30)
[2024-02-12] MEDS ORDERED: OxyCODONE HCL 5 MG TAB PO PRN ×2 (07:30)
[2024-02-12] MEDS ORDERED: Ondansetron HCl 2 MG / ML 2ML Vial IV PRN (07:30)
[2024-02-12] MEDS ORDERED: propofoL 20 ML IV ONE (07:32)
[2024-02-12] MEDS ORDERED: SuccINYLCHOLINE Chloride 100 MG/5 ML 5MLSYR ONE (07:33)
[2024-02-12] MEDS ORDERED: Rocuronium Bromide 10 MG/ML 5ML Injection IV ONE (07:33)
[2024-02-12] MEDS ORDERED: Metoclopramide HCl 5MG / ML 2ML Vial IV PRN (07:35)
[2024-02-12] MEDS ORDERED: Magnesium Hydroxide Conc 10 ML UDC PO PRN (07:35)
[2024-02-12] MEDS ORDERED: Bisacodyl 10 MG Supp PR PRN (07:35)
[2024-02-12] MEDS ORDERED: Prochlorperazine Edisylate 10 mg Vial IV PRN (07:40)
[2024-02-12] MEDS ORDERED: HYDROmorphone HCl/Pf 1MG SYR IV PRN (07:40)
[2024-02-12] MEDS ORDERED: Promethazine HCl 25 MG Tab PO PRN (07:40)
[2024-02-12] MEDS ORDERED: Acetaminophen 500 MG Tab PO SCH (08:00)
--- NOTE | 2024-02-12 08:21 | NUR ---
02/12/24 0821 Reva Isidro 1GM OF VANCO POWDER INSTILLED INTO L HIP CAPSULE BY DR. OVALLE
[2024-02-12] MEDS ORDERED: Phenylephrine HCl 10mg/ml 1 ml Vial ONE (08:35)
[2024-02-12] MEDS ORDERED: Phenylephrine HCl 100 MCG/ML-NS 10MLSYR (1MG/10ML) ONE (08:35)
[2024-02-12] MEDS ORDERED: Docusate Sodium 100 MG Cap PO SCH (09:00)
[2024-02-12] MEDS ORDERED: Sugammadex Sodium 200 MG/2ML SDV (100 MG/ML) ONE (09:11)
[2024-02-12] MEDS ORDERED: Morphine Sulfate 4 MG/1 ML Injection ONE (09:48)
[2024-02-12] MEDS ORDERED: Ketorolac Tromethamine 15mg Vial IV SCH (12:00)
[2024-02-12] MEDS ORDERED: CeFAZolin Sodium 2,000 MG in NS 100 ML IV SCH (15:00)
--- NOTE | 2024-02-12 18:37 | NUR ---
SHIFT SUMMARY PT S/P LEFT DANNY HIP. FOAM TAPE AND GAUZE DRESSING, CDI. PT HAS A FLAT AFFECT AND IS A/O X2-3. TREATED FOR PAIN X2 THIS SHIFT. PT IS INCONTINENT WITH A PUREWICK IN PLACE. PT WORKED WITH PHYSICAL THERAPY BUT UNABLE TO GET UP AT THE TIME. VSS.
[2024-02-12] MEDS ORDERED: Vancomycin HCL 1,000 MG in NS 100 ML IV SCH (19:00)
[2024-02-13 04:35] VITALS: BP 134/59
--- NOTE | 2024-02-13 05:10 | NUR ---
SHIFT SUMMARY PT S/P LEFT DANNY HIP, SURGICAL SITE WNL. PT TOLERATING PO INTAKE. VITALS ARE STABLE. PT HAS NOT YET WORKED WITH THERAPY. MEDICATED FOR PAIN PRN PER EMAR. PLAN OF CARE REMAINS UNCHANGED. BED IN LOWEST POSITION, CALL LIGHT WITHIN REACH.
[2024-02-13 05:58] LABS: BASOPHILS ABSOLUTE AUTO 0.01 K/mm3 (0.00-0.23); BASOPHILS PERCENT AUTO 0 % (0-2); EOSINOPHILS PERCENT AUTO 0 % (0-6); Hematocrit 27.9 % (33.0-51.0); IMMATURE GRAN ABSOLUTE AUTO 0.03 K/mm3 (0.00-0.10); IMMATURE GRAN PERCENT AUTO 0 % (0-1); LYMPHOCYTES PERCENT AUTO 13 % (21-46); MONOCYTES ABSOLUTE AUTO 0.93 K/mm3 (0.16-1.47); MONOCYTES PERCENT AUTO 10 % (4-13); Mean Corpuscular HGB 27.9 pg (26.0-34.0); Mean Corpuscular HGB Conc 32.3 g/dL (31.5-36.5); Mean Corpuscular Volume 86 fL (80-100); Mean Platelet Volume 9.5 fL (9.1-12.4); NEUTROPHILS ABSOLUTE AUTO 6.76 K/mm3 (1.96-9.15); NEUTROPHILS PERCENT AUTO 76 % (41-73); Platelet Count 355 K/mm3 (150-400); RDW Coefficient Variation 17.2 % (11.7-14.2); RDW Standard Deviation 54.7 fL (35.1-46.3); Red Blood Cell Count 3.23 M/mm3 (3.80-5.20); White Blood Cell Count 8.93 K/mm3 (4.00-11.30)
[2024-02-13 06:25] LABS: Bun/Creatinine Ratio 25.1 (12.0-20.0); Calcium, Blood 9.4 mg/dL (8.5-10.1); Creatinine, Blood 0.6 mg/dL (0.40-1.00); Potassium, Blood 3.6 mmol/L (3.5-5.5)
[2024-02-13 07:09] VITALS: BP 135/72
--- NOTE | 2024-02-13 08:25 | NUR ---
DR. FAGAN NOTIFIED THAT PT NO LONGER HAS IV ACCESS BUT STILL HAS TELE IN PLACE. PER MACHINE CASTINGS PLASTERER PT HAS HAD NO EVENTS IN 48 HOURS. REQUESTED THAT TELE BE DC'D. PT NSR @88 PER MACHINE CASTINGS PLASTERER
[2024-02-13] MEDS ORDERED: Aspirin 81 MG Chew PO SCH (09:00)
[2024-02-13] MEDS ORDERED: Trimethoprim/Sulfamethoxazole DS Tab PO SCH (09:00)
--- NOTE | 2024-02-13 11:15 | NUR ---
DR. FAGAN ROUNDED REQUESTED THAT DR. FAGAN REVIEW COLACE ORDERS AND PAIN MEDICATION ORDERS.
[2024-02-13] MEDS ORDERED: OxyCODONE HCL 5 MG TAB PO PRN (13:10)
[2024-02-13] MEDS ORDERED: Polyethylene Glycol 3350 17 gm PO SCH (14:00)
[2024-02-13 14:52] VITALS: BP 159/73
--- NOTE | 2024-02-13 18:20 | NUR ---
SHIFT SUMMARY PT IS POD#1 FROM L DANNY HIP. PAIN MANAGED WITH OXYCODONE. PT IS A 2 PERSON MAX ASSIST WITH TRANSFERS. PT IS FORGETFUL AT TIMES, BED ALARM IN PLACE FOR SAFETY. PT WORKED WITH THERAPY TODAY AND SAT UP TO THE CHAIR.
[2024-02-13 19:33] VITALS: BP 147/65
[2024-02-14 03:46] VITALS: BP 161/68
--- NOTE | 2024-02-14 04:18 | NUR ---
SHIFT SUMMARY NO ACUTE CHANGES OVERNIGHT, PT HAS RESTED MOST OF THE NIGHT. SURGICAL SITE WNL. MEDICATED FOR PAIN PRN PER EMAR. PT TOLERATING PO INTAKE AND IS VOIDING . PLAN OF CARE REMAINS UNCHANGED. BED IN LOWEST POSITION, CALL LIGHT WITHIN REACH.
[2024-02-14 07:25] VITALS: BP 162/65
[2024-02-14 15:04] VITALS: BP 179/67
[2024-02-14 16:18] VITALS: BP 184/89
[2024-02-14] MEDS ORDERED: HydrALAZINE HCl 10 MG Tab PO PRN (16:30)
[2024-02-14 17:46] VITALS: BP 157/66
--- NOTE | 2024-02-14 17:50 | NUR ---
SHIFTS SUMMARY PT IS POD#2 FROM [facility]. PAIN MANAGED WITH OXYCODONE AND TYLENOL. PT IS A 2 MAX ASSIST FOR TRANSFERS. SHE DECLINED OOB TODAY. BED ALARM IN PLACE FOR SAFETY. BP ELEVATED THIS SHIFT, PO HYDRALAZINE AVALIABLE, BP HAS IMPROVED THIS EVENING.
[2024-02-14 19:11] VITALS: BP 119/62
[2024-02-15 02:53] VITALS: BP 160/70
[2024-02-15 08:02] VITALS: BP 143/70
--- NOTE | 2024-02-15 08:12 | NUR ---
SUMMARY PT WITH NO ACUTE CHANGES THIS SHIFT.CONT TO TAKE ROUTINE PAIN MEDS.
[2024-02-15 14:47] VITALS: BP 136/66
--- NOTE | 2024-02-15 18:39 | NUR ---
SHIFT SUMMARY POD3 [facility], ALERT BUT INTERMITTENTLY CONFUSED, CALLS FREQUENTLY FOR PAIN BUT DOES NOT APPEAR TO BE IN ANY DISTRESS, REPORTS HER PAIN AT 10/10 EACH TIME SHE CALLS BUT FLACC AND FACE SCALES ARE BOTH 0/10. UP TO CHAIR TODAY THOUGH SHE WAS INITIALLY RESISTEANT TO AMBULATING BUT DID WELL WITH ENCOURAGEMENT. NO ACUTE EVENTS THIS SHIFT, CALL LIGHT IN REACH.
[2024-02-15 20:11] VITALS: BP 153/57
[2024-02-16 05:18] VITALS: BP 152/63
--- NOTE | 2024-02-16 05:29 | NUR ---
SUMMARY- NO NEW ISSUES NOTED. PT PAIN MANAGED WELL. CALL LIGHT IN REACH PT REPOSITIONED TOLERATED. PT BRIEF CHANGED NEEDED.
[2024-02-16 07:14] VITALS: BP 151/61
[2024-02-16 14:40] VITALS: BP 125/64
== END 2024-02-16 17:15 | disposition home or self-care (01) | DRG 522 ==
LOC: ER 17:51 → SURS 22:12
PROVIDERS: Internal Medicine; Nurse Practitioner Acute Care; Orthopaedic Surgery; Physician Assistant; ADMIT Student in an Organized Health Care Education/Training Program
PROC: 0SRS0JA Replacement of Left Hip Joint, Femoral Surface with Synthetic Substitute, Uncemented, Open Approach (ICD-10-PCS; principal; 2024-02-12 07:30)
DX: S72.002A Fracture of unspecified part of neck of left femur, initial encounter for closed fracture (principal); L03.116 Cellulitis of left lower limb; I10 Essential (primary) hypertension; F10.20 Alcohol dependence, uncomplicated; W01.0XXA Fall on same level from slipping, tripping and stumbling without subsequent striking against object, initial encounter; E87.6 Hypokalemia; Z79.899 Other long term (current) drug therapy; Z79.2 Long term (current) use of antibiotics; Z79.82 Long term (current) use of aspirin; Z87.891 Personal history of nicotine dependence
CPT/HCPCS: 36415; 72170; 73552; 80048; 80053; 82550; 83735; 84100; 84132; 85025; 85610; 93005; 93010; 94762; 96374; 97110; 97162; 97166; 97530; 97535; 99284-25; A9270; C1776; J0171; J0330; J0360; J0690; J0735; J1170; J1885; J2270; J2371; J2704; J2795; J3010; J3370; J3480; J7030; J7050; J7120

== ENCOUNTER → 2024-03-18 | Outpatient (CLI) | payer OTHER ==
[2024-03-18 19:33] LABS: Bun/Creatinine Ratio 19.3 (12.0-20.0); Calcium, Blood 9.7 mg/dL (8.5-10.1); Creatinine, Blood 0.78 mg/dL (0.40-1.00); Potassium, Blood 4.1 mmol/L (3.5-5.5)
== END | disposition home or self-care (01) ==
LOC: LAB 18:38 → LAB SHORT 18:38
PROVIDERS: Student in an Organized Health Care Education/Training Program
DX: S72.045A Nondisplaced fracture of base of neck of left femur, initial encounter for closed fracture (principal)
CPT/HCPCS: 80048